=== PATIENT | male | born 1960 | race Hispanic/Latino ===

== ENCOUNTER 2019-02-16 10:26 | Emergency (ER) | payer SELFPAY ==
[~2019-02-16] VITALS: Ht 167.6 cm; Wt 93.0 kg
--- NOTE | 2019-02-16 12:22 | NUR ---
PATIENT BROUGHT BACK TO TRIAGE FOR RE-EVALUATION
--- NOTE | 2019-02-16 12:35 | Diagnostic Imaging Report ---
EXAMINATION: RIBS UNILAT W/CXR INDICATION: Status post fall with right-sided rib pain. COMPARISON: None FINDINGS: TUBES and LINES: None. LUNGS: Lungs are not well inflated. There is no evidence of pneumonia or pulmonary edema. Calcified right-sided granulomas. PLEURA: No pleural effusion or pneumothorax. HEART AND MEDIASTINUM: The cardiomediastinal silhouette is unremarkable. There are atherosclerotic calcifications within the aorta. Calcified right mediastinal lymph nodes, consistent with prior granulomatous disease. BONES AND SOFT TISSUES: There are deformities with suspected acute fractures of the right lateral sixth through ninth ribs. No significant displacement. UPPER ABDOMEN: No free air under the diaphragm. IMPRESSION: Deformities of the right lateral sixth through ninth ribs, suggestive of nondisplaced fractures in the setting of recent trauma. No evidence of pneumothorax. Signed by: Dr. Maria Esther Bryson MD on 02/16/2019 12:32 PM
== END 2019-02-16 13:24 | disposition home or self-care (01) ==
LOC: ER 10:26
DX: B02.29 Other postherpetic nervous system involvement (principal); S22.41XA Multiple fractures of ribs, right side, initial encounter for closed fracture; W01.0XXA Fall on same level from slipping, tripping and stumbling without subsequent striking against object, initial encounter; I10 Essential (primary) hypertension; R73.03 Prediabetes
CPT/HCPCS: 71101; 99283